=== PATIENT | male | born 1975 | race Caucasian/White ===

== ENCOUNTER 2016-12-09 19:15 | Inpatient (IN) | payer OTHER ==
[~2016-12-09] VITALS: Ht 185.4 cm; Wt 103.0 kg
[2016-12-09 19:55] LABS: HEMATOCRIT 36.1 % (38.0-50.0); MCHC 33.2 G/DL (30.0-36.0); MCV 96.3 FL (86-99); MEAN PLAT.VOLUME 11.1 uM^3 (9.0-12.4); PLATELET COUNT 60 K/uL (156-360); RBC DIS.WIDTH-CV 17.6 % (11.8-14.6); RED BLOOD COUNT 3.75 M/uL (4.00-5.50); WHITE BLOOD COUNT 4.6 K/uL (4.1-10.2)
[2016-12-09 20:04] LABS: CHLORIDE 101 mEq/L (99-109); POTASSIUM 4.3 mEq/L (3.7-5.4); SODIUM 135 mEq/L (136-147)
[2016-12-09 20:06] LABS: GLUCOSE 142 mg/dL (70-99)
[2016-12-09 20:07] LABS: ANION GAP 9 MEQ/L (2-14)
[2016-12-09 20:08] LABS: TOTAL BILIRUBIN 5.5 mg/dL (0.0-1.0)
[2016-12-09 20:10] LABS: ALKALINE PHOSPHATASE 162 IU/L (3-129); GFR ESTIMATE (CALCULATED) > 59 mL/min/
[2016-12-09 20:11] LABS: UREA NITROGEN (BUN) 7 mg/dL (9-23)
[2016-12-09 20:13] LABS: LIPASE 56 U/L (1.0-51.0)
[2016-12-09 20:44] LABS: ADD MIUA? YES; BILIRUBIN NEGATIVE; BLOOD NEGATIVE; GLUCOSE (STRIP) NEGATIVE; KETONES TRACE; LEUKOCYTES SMALL; NITRITE POSITIVE; PH, URINE 8.5 (5-8); PROTEIN (STRIP) 30; SPECIFIC GRAVITY 1.022 (1.000-1.030)
[2016-12-09 20:46] LABS: COLOR ORANGE ((YELLOW))
[2016-12-09 20:52] LABS: INTER. NORMALIZED RATIO 1.6; PROTHROMBIN TIME 16.7 (9.2-11.2); PTT 30.9 (25-32)
[2016-12-09 21:02] LABS: SERUM ETHYL ALCOHOL < 10 mg/dL
[2016-12-09 21:02] LABS: BACTERIA 2+ /HPF; CASTS NONE SEEN /LPF; CRYSTALS NONE SEEN; EPITHELIAL CELLS RARE /HPF; MUCUS 3+ /LPF; RED BLOOD CELLS 0-5 /HPF (0-5); UCUL ADDED? NO; WHITE BLOOD CELLS 0-5 /HPF (0-5)
[2016-12-10 00:13] VITALS: BP 145/76
[2016-12-10 07:19] LABS: MCH 32.8 PG (29.0-34.0); MCHC 33.5 G/DL (30.0-36.0); MCV 97.7 FL (86-99); MEAN PLAT.VOLUME 11.8 uM^3 (9.0-12.4); PLATELET COUNT 57 K/uL (156-360); RBC DIS.WIDTH-CV 17.7 % (11.8-14.6); RBC DIS.WIDTH-SD 63.2 % (39-53); RED BLOOD COUNT 3.48 M/uL (4.00-5.50); WHITE BLOOD COUNT 4.1 K/uL (4.1-10.2)
[2016-12-10 07:41] LABS: ALKALINE PHOSPHATASE 127 IU/L (3-129); ANION GAP 8 MEQ/L (2-14); CHLORIDE 100 MEQ/L (99-109); GFR ESTIMATE (CALCULATED) > 59 mL/min/; GLUCOSE 130 mg/dL (70-99); SAMPLE HEMOLYSIS CHECK 0; SAMPLE ICTERIC CHECK 2; SAMPLE LIPEMIA CHECK 0; SODIUM 133 MEQ/L (136-147); TOTAL BILIRUBIN 5.8 MG/DL (0.0-1.0); UREA NITROGEN (BUN) 6 mg/dL (9-23)
[2016-12-10 07:47] LABS: POTASSIUM 3.3 MEQ/L (3.7-5.4)
[2016-12-10 07:51] VITALS: BP 147/70
[2016-12-10 10:59] LABS: HPCA INDEX 0.36
[2016-12-10 11:29] VITALS: BP 135/80
[2016-12-10 11:30] LABS: ANTI-HEPATITIS B CORE (IGM) Nonreactive
[2016-12-10 11:31] LABS: ANTI-HEPATITIS A VIRUS (IGM) Nonreactive; HAV INDEX 0.21
[2016-12-10 15:51] VITALS: BP 136/76
[2016-12-10 17:47] LABS: HEMATOCRIT 36.2 % (38.0-50.0); MCH 32.3 PG (29.0-34.0); MCHC 33.1 G/DL (30.0-36.0); MCV 97.6 FL (86-99); MEAN PLAT.VOLUME 11.4 uM^3 (9.0-12.4); PLATELET COUNT 73 K/uL (156-360); RBC DIS.WIDTH-CV 17.4 % (11.8-14.6); RBC DIS.WIDTH-SD 62.4 % (39-53); RED BLOOD COUNT 3.71 M/uL (4.00-5.50); WHITE BLOOD COUNT 4.9 K/uL (4.1-10.2)
[2016-12-10 17:59] LABS: INTER. NORMALIZED RATIO 1.6; PROTHROMBIN TIME 16.7 (9.2-11.2); PTT 31.9 (25-32)
[2016-12-10 18:11] LABS: GLOBULINS 4.8 G/DL (2.3-3.5); IRON 85 MCG/DL (35-150)
[2016-12-10 18:25] LABS: AMYLASE 77 IU/L (1-118)
[2016-12-10 18:30] LABS: FERRITIN 182 NG/ML (22-322)
[2016-12-10 19:24] VITALS: BP 124/73
[2016-12-10 22:59] VITALS: BP 135/79
[2016-12-11 02:55] VITALS: BP 126/80
[2016-12-11 06:32] LABS: HEMATOCRIT 34.5 % (38.0-50.0); MCH 32.6 PG (29.0-34.0); MCHC 33.3 G/DL (30.0-36.0); MCV 97.7 FL (86-99); PLATELET COUNT 65 K/uL (156-360); RBC DIS.WIDTH-CV 17.5 % (11.8-14.6); RBC DIS.WIDTH-SD 62.6 % (39-53); RED BLOOD COUNT 3.53 M/uL (4.00-5.50); WHITE BLOOD COUNT 4.4 K/uL (4.1-10.2)
[2016-12-11 06:48] LABS: INTER. NORMALIZED RATIO 1.7; PROTHROMBIN TIME 17.4 (9.2-11.2)
[2016-12-11 06:58] LABS: ALKALINE PHOSPHATASE 129 IU/L (3-129); ANION GAP 8 MEQ/L (2-14); CHLORIDE 103 MEQ/L (99-109); GFR ESTIMATE (CALCULATED) > 59 mL/min/; GLUCOSE 89 mg/dL (70-99); POTASSIUM 3.6 MEQ/L (3.7-5.4); SAMPLE HEMOLYSIS CHECK 0; SAMPLE ICTERIC CHECK 1; SAMPLE LIPEMIA CHECK 0; SODIUM 137 MEQ/L (136-147); TOTAL BILIRUBIN 5.1 MG/DL (0.0-1.0); UREA NITROGEN (BUN) 7 mg/dL (9-23)
[2016-12-11 08:12] VITALS: BP 138/86
[2016-12-11 11:32] VITALS: BP 139/81
[2016-12-11] MEDS ORDERED: ZOLPIDEM TARTRAT5 MG PO (11:51)
[2016-12-11] MEDS ORDERED: PANTOPRAZOLE SO40 MG PO (11:51)
[2016-12-11] MEDS ORDERED: THERAGRAN1 TABLET PO (11:51)
[2016-12-11] MEDS ORDERED: FOLIC ACID1 MG PO (11:51)
[2016-12-11] MEDS ORDERED: Thiamine,Vitamin B1 PO (11:51)
[2016-12-12 11:09] LABS: AHBS INDEX 0; HEPATITIS B SURFACE ANTIBODY Nonreactive
[2016-12-12 11:10] LABS: ANTI-HEPATITIS A VIRUS (IGM) Nonreactive; HAV INDEX 0.15
[2016-12-12 14:15] LABS: ALBUMIN 3.38 G/DL (3.6-4.9); ALBUMIN PERCENT 42.2 %; ALPHA-1 GLOBULIN 0.32 G/DL (0.15-0.40); ALPHA-2 GLOBULIN 0.58 G/DL (0.45-0.85); ALPHA-2 PERCENT 7.3 %; BETA PERCENT 9.6 %; GAMMA PERCENT 36.9 %
[2016-12-14 05:19] LABS: HCV RNA (IU/mL) <15 IU/mL (<15)
[2016-12-14 11:38] LABS: HCV RNA (LOG IU/mL) <1.18 (<1.18)
== END 2016-12-11 12:47 | disposition home or self-care (01) | DRG 433 ==
LOC: EME 19:15 → EDOF 23:20 → 5EAST 12-10 00:08
PROVIDERS: Hospitalist; Internal Medicine; Specialist
DX: K70.10 Alcoholic hepatitis without ascites (principal); F10.239 Alcohol dependence with withdrawal, unspecified; D68.4 Acquired coagulation factor deficiency; K76.6 Portal hypertension; I85.10 Secondary esophageal varices without bleeding; R04.0 Epistaxis; K06.8 Other specified disorders of gingiva and edentulous alveolar ridge; F17.210 Nicotine dependence, cigarettes, uncomplicated; E66.9 Obesity, unspecified; I78.1 Nevus, non-neoplastic; L30.9 Dermatitis, unspecified; Y90.0 Blood alcohol level of less than 20 mg/100 ml; D69.59 Other secondary thrombocytopenia; G89.29 Other chronic pain; R16.1 Splenomegaly, not elsewhere classified; K70.30 Alcoholic cirrhosis of liver without ascites; I86.8 Varicose veins of other specified sites; I86.4 Gastric varices; K42.9 Umbilical hernia without obstruction or gangrene; D64.89 Other specified anemias; Z56.0 Unemployment, unspecified; Z68.29 Body mass index [BMI] 29.0-29.9, adult; Z87.820 Personal history of traumatic brain injury; Z82.49 Family history of ischemic heart disease and other diseases of the circulatory system
CPT/HCPCS: 74177; 80053; 80074; 81003; 82140; 82150; 82390; 82607; 82728; 82746; 83540; 83690; 84165; 84466; 85027; 85610; 85730; 86706; 86709; 87086; 87522 90; 99281; 99285; G0480; J7030

== ENCOUNTER 2017-01-09 21:30 | Inpatient (IN) | payer OTHER ==
[~2017-01-09] VITALS: Ht 185.4 cm; Wt 107.0 kg
[~2017-01-09 21:30] MED LIST: FOLIC ACID1 MG PO; PANTOPRAZOLE SO40 MG PO; THERAGRAN1 TABLET PO; Thiamine,Vitamin B1 PO; ZOLPIDEM TARTRAT5 MG PO
[2017-01-09 22:00] VITALS: BP 162/90
[2017-01-09 22:17] LABS: CHLORIDE 103 mEq/L (99-109); POTASSIUM 3.9 mEq/L (3.7-5.4); SODIUM 137 mEq/L (136-147)
[2017-01-09 22:19] LABS: HEMATOCRIT 34.6 % (38.0-50.0); MCH 32.6 PG (29.0-34.0); MCHC 33.8 G/DL (30.0-36.0); MCV 96.4 FL (86-99); MEAN PLAT.VOLUME 11.1 uM^3 (9.0-12.4); RBC DIS.WIDTH-CV 16.4 % (11.8-14.6); RBC DIS.WIDTH-SD 55.1 % (39-53); RED BLOOD COUNT 3.59 M/uL (4.00-5.50); WHITE BLOOD COUNT 5.9 K/uL (4.1-10.2)
[2017-01-09 22:20] LABS: GLUCOSE 114 mg/dL (70-99); PLATELET COUNT 77 K/uL (156-360)
[2017-01-09 22:21] LABS: ANION GAP 9 MEQ/L (2-14)
[2017-01-09 22:22] LABS: TOTAL BILIRUBIN 2.5 mg/dL (0.0-1.0)
[2017-01-09 22:23] LABS: ALKALINE PHOSPHATASE 261 IU/L (3-129); GFR ESTIMATE (CALCULATED) > 59 mL/min/
[2017-01-09 22:24] LABS: UREA NITROGEN (BUN) 5 mg/dL (9-23)
[2017-01-09 22:32] VITALS: BP 152/84
[2017-01-09 22:50] LABS: INTER. NORMALIZED RATIO 1.5; PROTHROMBIN TIME 15.7 (9.2-11.2); PTT 30.6 (25-32)
[2017-01-10] MEDS ORDERED: OMEPRAZOLE20 M2 PO (00:37)
[2017-01-10] MEDS ORDERED: B-1100 MG PO (00:37)
[2017-01-10] MEDS ORDERED: FOLIC ACID1 MG PO (00:37)
[2017-01-10] MEDS ORDERED: DESYREL100 MG PO (00:39)
[2017-01-10] MEDS ORDERED: MEN'S MULTI-VI1 EACH PO (00:39)
[2017-01-10] MEDS ORDERED: PRILOSEC20 MG PO (00:40)
[2017-01-10] MEDS ORDERED: INDERAL20 MG PO (00:40)
[2017-01-10 01:53] LABS: ADD MIUA? NO; BILIRUBIN NEGATIVE; BLOOD NEGATIVE; COLOR YELLOW ((YELLOW)); GLUCOSE (STRIP) NEGATIVE; KETONES NEGATIVE; LEUKOCYTES NEGATIVE; NITRITE NEGATIVE; PROTEIN (STRIP) NEGATIVE; SPECIFIC GRAVITY 1.023 (1.000-1.030); UCUL ADDED? NO; UROBILINOGEN 0.2 MG/DL (0.2-1.0)
[2017-01-10 08:00] VITALS: BP 157/83
[2017-01-10 08:50] LABS: HEMATOCRIT 34.2 % (38.0-50.0); MCHC 33.6 G/DL (30.0-36.0); MEAN PLAT.VOLUME 11.7 uM^3 (9.0-12.4); PLATELET COUNT 67 K/uL (156-360); RBC DIS.WIDTH-CV 16.5 % (11.8-14.6); RBC DIS.WIDTH-SD 58.7 % (39-53); RED BLOOD COUNT 3.49 M/uL (4.00-5.50); WHITE BLOOD COUNT 4.8 K/uL (4.1-10.2)
[2017-01-10 09:16] LABS: ALKALINE PHOSPHATASE 164 IU/L (3-129); ANION GAP 9 MEQ/L (2-14); CHLORIDE 102 MEQ/L (99-109); GFR ESTIMATE (CALCULATED) > 59 mL/min/; GLUCOSE 132 mg/dL (70-99); SAMPLE HEMOLYSIS CHECK 0; SAMPLE ICTERIC CHECK 1; SAMPLE LIPEMIA CHECK 0; SODIUM 136 MEQ/L (136-147); TOTAL BILIRUBIN 4.4 MG/DL (0.0-1.0); UREA NITROGEN (BUN) 7 mg/dL (9-23)
[2017-01-10 11:44] VITALS: BP 164/100
[2017-01-10 16:10] VITALS: BP 137/95
[2017-01-10 19:52] VITALS: BP 152/80
[2017-01-10 19:59] LABS: HEMATOCRIT 34.6 % (38.0-50.0)
[2017-01-10 23:35] VITALS: BP 138/78
[2017-01-11 03:36] VITALS: BP 159/79
[2017-01-11 07:26] VITALS: BP 143/72
[2017-01-11 08:48] LABS: HEMATOCRIT 35.4 % (38.0-50.0); MCH 31.8 PG (29.0-34.0); MCHC 32.5 G/DL (30.0-36.0); MCV 97.8 FL (86-99); MEAN PLAT.VOLUME 11.2 uM^3 (9.0-12.4); PLATELET COUNT 61 K/uL (156-360); RBC DIS.WIDTH-SD 57.3 % (39-53); RED BLOOD COUNT 3.62 M/uL (4.00-5.50)
[2017-01-11 09:17] LABS: ALKALINE PHOSPHATASE 114 IU/L (3-129); ANION GAP 8 MEQ/L (2-14); CHLORIDE 100 MEQ/L (99-109); DIRECT BILIRUBIN 2.9 mg/dL (0.0-0.3); GFR ESTIMATE (CALCULATED) > 59 mL/min/; GLUCOSE 111 mg/dL (70-99); POTASSIUM 3.8 MEQ/L (3.7-5.4); SAMPLE HEMOLYSIS CHECK 0; SAMPLE ICTERIC CHECK 2; SAMPLE LIPEMIA CHECK 0; SODIUM 135 MEQ/L (136-147); TOTAL BILIRUBIN 6.8 MG/DL (0.0-1.0); UREA NITROGEN (BUN) 7 mg/dL (9-23)
[2017-01-11 11:30] VITALS: BP 134/82
[2017-01-11 15:45] VITALS: BP 141/78
[2017-01-11 17:50] VITALS: BP 137/79
[2017-01-11 20:10] LABS: HEMATOCRIT 34.3 % (38.0-50.0); MCV 98.3 FL (86-99)
[2017-01-11 20:29] VITALS: BP 147/78
[2017-01-12 00:27] VITALS: BP 127/67
[2017-01-12 04:27] VITALS: BP 126/72
[2017-01-12 06:45] LABS: INTER. NORMALIZED RATIO 1.7; PROTHROMBIN TIME 18.1 (9.2-11.2); PTT 33.1 (25-32)
[2017-01-12 06:56] LABS: DELETE MACHINE DIFF? YES; HEMATOCRIT 34.9 % (38.0-50.0); MCH 33.3 PG (29.0-34.0); MCHC 34.1 G/DL (30.0-36.0); MCV 97.8 FL (86-99); RBC DIS.WIDTH-CV 15.9 % (11.8-14.6); RBC DIS.WIDTH-SD 56.6 % (39-53); RED BLOOD COUNT 3.57 M/uL (4.00-5.50); WHITE BLOOD COUNT 5.1 K/uL (4.1-10.2)
[2017-01-12 07:03] LABS: ALKALINE PHOSPHATASE 108 IU/L (3-129); ANION GAP 8 MEQ/L (2-14); CHLORIDE 100 MEQ/L (99-109); DIRECT BILIRUBIN 2.8 mg/dL (0.0-0.3); GFR ESTIMATE (CALCULATED) > 59 mL/min/; GLUCOSE 109 mg/dL (70-99); POTASSIUM 3.7 MEQ/L (3.7-5.4); SAMPLE HEMOLYSIS CHECK 0; SAMPLE ICTERIC CHECK 2; SAMPLE LIPEMIA CHECK 0; SODIUM 134 MEQ/L (136-147); TOTAL BILIRUBIN 6.1 MG/DL (0.0-1.0); UREA NITROGEN (BUN) 7 mg/dL (9-23)
[2017-01-12 07:21] LABS: HEMATOCRIT 34.9 % (38.0-50.0); MCV 97.8 FL (86-99)
[2017-01-12 07:37] VITALS: BP 134/73
[2017-01-12 07:40] LABS: MEAN PLAT.VOLUME 11.7 uM^3 (9.0-12.4); PLATELET COUNT 59 K/uL (156-360)
[2017-01-12 07:54] LABS: ABS NEUTROPHIL COUNT 3.54; ANISOCYTOSIS 1+; EOSINOPHIL ABS CT 0.51; HYPOCHROMASIA 1+; MACROCYTES OCC; MICROCYTOSIS OCC; PLAT.SUFFICIENCY DECREASED; TARGET CELLS RARE; TEAR DROP CELLS OCC; USER ID TLW
== END 2017-01-12 11:25 | disposition home or self-care (01) | DRG 378 ==
LOC: EME 21:30 → EDOF 01-10 00:47 → 4EAST 01-10 00:47 → EDOF 01-10 06:33 → 4EAST 01-10 07:13
PROVIDERS: Emergency Medicine; Hospitalist; Nurse Practitioner Adult Health; Specialist
PROC: 0DJ08ZZ Inspection of Upper Intestinal Tract, Via Natural or Artificial Opening Endoscopic (ICD-10-PCS; principal; 2017-01-11)
DX: K92.0 Hematemesis (principal); K76.6 Portal hypertension; D61.818 Other pancytopenia; F10.239 Alcohol dependence with withdrawal, unspecified; I85.10 Secondary esophageal varices without bleeding; K70.31 Alcoholic cirrhosis of liver with ascites; K31.89 Other diseases of stomach and duodenum; R16.1 Splenomegaly, not elsewhere classified; I86.4 Gastric varices; K72.10 Chronic hepatic failure without coma; E66.9 Obesity, unspecified; K80.20 Calculus of gallbladder without cholecystitis without obstruction; F17.210 Nicotine dependence, cigarettes, uncomplicated; Z87.820 Personal history of traumatic brain injury; Z56.0 Unemployment, unspecified; Z68.32 Body mass index [BMI] 32.0-32.9, adult; Z82.49 Family history of ischemic heart disease and other diseases of the circulatory system
CPT/HCPCS: 74177; 80048; 80053; 80076; 81003; 82140; 82248; 83605; 83690; 85014; 85018; 85025; 85027; 85610; 85730; 86850; 86900; 86901; 99281; 99285; C9113; J2354; J3411; J3430; J7030; J7050; P9047

== ENCOUNTER → 2017-03-10 | Outpatient (CLI) | payer OTHER ==
[~2017-03-10] VITALS: Ht 185.4 cm; Wt 106.6 kg
[~2017-03-10] MED LIST changes: +B-1100 MG PO; +DESYREL100 MG PO; +INDERAL20 MG PO; +MEN'S MULTI-VI1 EACH PO; +OMEPRAZOLE20 M2 PO; +PRILOSEC20 MG PO
== END | disposition home or self-care (01) ==
LOC: AMB 13:38
PROC: 06L34CZ Occlusion of Esophageal Vein with Extraluminal Device, Percutaneous Endoscopic Approach (ICD-10-PCS; principal; 2017-03-10)
DX: K70.30 Alcoholic cirrhosis of liver without ascites (principal); I85.10 Secondary esophageal varices without bleeding; K76.6 Portal hypertension; K31.89 Other diseases of stomach and duodenum; K25.9 Gastric ulcer, unspecified as acute or chronic, without hemorrhage or perforation; K92.0 Hematemesis; D64.9 Anemia, unspecified; K21.9 Gastro-esophageal reflux disease without esophagitis
CPT/HCPCS: J2250; J3010

== ENCOUNTER 2017-03-27 11:00 | Inpatient (IN) | payer OTHER ==
[~2017-03-27] VITALS: Ht 185.4 cm; Wt 101.5 kg
[2017-03-27 12:04] LABS: HEMATOCRIT 36.5 % (38.0-50.0); MCH 33.3 PG (29.0-34.0); MCV 98.1 FL (86-99); MEAN PLAT.VOLUME 11.2 uM^3 (9.0-12.4); PLATELET COUNT 125 K/uL (156-360); RBC DIS.WIDTH-CV 15.7 % (11.8-14.6); RBC DIS.WIDTH-SD 56.5 % (39-53); RED BLOOD COUNT 3.72 M/uL (4.00-5.50)
[2017-03-27 12:22] LABS: CHLORIDE 96 mEq/L (99-109); POTASSIUM 5.9 mEq/L (3.7-5.4); SODIUM 129 mEq/L (136-147)
[2017-03-27 12:24] LABS: GLUCOSE 111 mg/dL (70-99)
[2017-03-27 12:26] LABS: ANION GAP 10 MEQ/L (2-14)
[2017-03-27 12:28] LABS: GFR ESTIMATE (CALCULATED) > 59 mL/min/
[2017-03-27 12:29] LABS: UREA NITROGEN (BUN) 15 mg/dL (9-23)
[2017-03-27 12:54] LABS: TOTAL BILIRUBIN 4.9 mg/dL (0.0-1.0)
[2017-03-27 12:56] LABS: ALKALINE PHOSPHATASE 251 IU/L (3-129)
[2017-03-27 12:58] LABS: DIRECT BILIRUBIN 2.8 mg/dL (0.0-0.3)
[2017-03-27 12:59] LABS: LIPASE 92 U/L (1.0-51.0)
[2017-03-27] MEDS ORDERED: B COMPLETE1 EACH PO (13:10)
[2017-03-27] MEDS ORDERED: ASCORBIC ACID100 MG PO (13:10)
[2017-03-27] MEDS ORDERED: VITAMIN A10000 UNIT PO (13:10)
[2017-03-27 14:07] LABS: INTER. NORMALIZED RATIO 1.6; PROTHROMBIN TIME 16.1 (9.2-11.2); PTT 29.7 (25-32)
[2017-03-27 18:09] VITALS: BP 118/58
[2017-03-27 19:19] VITALS: BP 128/61
[2017-03-27 19:59] LABS: HEMATOCRIT 33.8 % (38.0-50.0)
[2017-03-27 23:42] VITALS: BP 131/66
[2017-03-28 04:43] VITALS: BP 118/64
[2017-03-28 07:39] VITALS: BP 128/62
[2017-03-28 07:58] LABS: ALKALINE PHOSPHATASE 140 IU/L (3-129); ANION GAP 8 MEQ/L (2-14); CHLORIDE 100 MEQ/L (99-109); GFR ESTIMATE (CALCULATED) > 59 mL/min/; GLUCOSE 126 mg/dL (70-99); SAMPLE HEMOLYSIS CHECK 0; SAMPLE ICTERIC CHECK 2; SAMPLE LIPEMIA CHECK 0; SODIUM 134 MEQ/L (136-147); TOTAL BILIRUBIN 6.9 MG/DL (0.0-1.0); UREA NITROGEN (BUN) 22 mg/dL (9-23)
[2017-03-28 08:01] LABS: POTASSIUM 4.2 MEQ/L (3.7-5.4)
[2017-03-28 08:04] LABS: HEMATOCRIT 30.9 % (38.0-50.0); MCH 33.7 PG (29.0-34.0); RBC DIS.WIDTH-CV 15.8 % (11.8-14.6); RBC DIS.WIDTH-SD 56.5 % (39-53); RED BLOOD COUNT 3.12 M/uL (4.00-5.50); WHITE BLOOD COUNT 7.6 K/uL (4.1-10.2)
[2017-03-28 09:21] LABS: MEAN PLAT.VOLUME 11.2 uM^3 (9.0-12.4); PLAT.SUFFICIENCY DECREASED
[2017-03-28 09:23] LABS: PLATELET COUNT 75 K/uL (156-360)
[2017-03-28 12:14] VITALS: BP 122/66
[2017-03-28 17:19] VITALS: BP 135/70
[2017-03-28 19:02] VITALS: BP 121/64
[2017-03-28 20:09] LABS: HEMATOCRIT 30.5 % (38.0-50.0); MCV 100.3 FL (86-99)
[2017-03-28 23:50] VITALS: BP 132/71
[2017-03-29 05:06] VITALS: BP 132/75
[2017-03-29 07:21] VITALS: BP 126/69
[2017-03-29 08:33] LABS: INTER. NORMALIZED RATIO 1.7; PROTHROMBIN TIME 17.3 (9.2-11.2); PTT 30.6 (25-32)
[2017-03-29 08:35] LABS: ALKALINE PHOSPHATASE 115 IU/L (3-129); ANION GAP 6 MEQ/L (2-14); CHLORIDE 101 MEQ/L (99-109); GFR ESTIMATE (CALCULATED) > 59 mL/min/; GLUCOSE 108 mg/dL (70-99); SAMPLE HEMOLYSIS CHECK 0; SAMPLE ICTERIC CHECK 2; SAMPLE LIPEMIA CHECK 0; SODIUM 135 MEQ/L (136-147); TOTAL BILIRUBIN 7.2 MG/DL (0.0-1.0); UREA NITROGEN (BUN) 14 mg/dL (9-23)
[2017-03-29 08:39] LABS: EOSINOPHIL COUNT 0.1 K/uL (0-0.3); HEMATOCRIT 29.1 % (38.0-50.0); IMMATURE GRANULOCYTE (%) 0.2 % (0.0-0.7); INSTRUMENT ABS NEUTROPHIL CT 3.1 K/uL; LYMPHOCYTE COUNT 0.7 K/uL (1.0-2.8); MCH 34.6 PG (29.0-34.0); MCHC 34.4 G/DL (30.0-36.0); MCV 100.7 FL (86-99); MEAN PLAT.VOLUME 11.8 uM^3 (9.0-12.4); MONOCYTE (%) 12.8 % (3-12); MONOCYTE COUNT 0.6 K/uL (0-0.8); NEUTROPHIL COUNT 3.1 K/uL (1.8-6.4); PLATELET COUNT 63 K/uL (156-360); RBC DIS.WIDTH-CV 15.9 % (11.8-14.6); RED BLOOD COUNT 2.89 M/uL (4.00-5.50)
[2017-03-29 08:43] LABS: WHITE BLOOD COUNT 4.6 K/uL (4.1-10.2)
[2017-03-29 10:57] VITALS: BP 142/69
[2017-03-29] MEDS ORDERED: VITAMIN B-1250 MG PO (12:10)
[2017-03-29] MEDS ORDERED: MEPHYTON5 MG PO (12:11)
[2017-03-29] MEDS ORDERED: SPIRONOLACTONE100 MG PO (12:11)
[2017-03-29] MEDS ORDERED: TRAZODONE HCL100 MG PO (12:12)
[2017-03-29] MEDS ORDERED: FEOSOL BIFERA 228 MG PO (12:14)
[2017-03-29] MEDS ORDERED: VITAMIN D35000 UNIT PO (12:15)
[2017-03-29 15:36] VITALS: BP 161/74
[2017-03-29 20:03] LABS: HEMATOCRIT 30.4 % (38.0-50.0)
[2017-03-29 20:14] VITALS: BP 158/80
[2017-03-29 23:31] VITALS: BP 137/75
[2017-03-30 05:07] VITALS: BP 132/76
[2017-03-30] MEDS ORDERED: TRAZODONE HCL100 MG PO (07:31)
[2017-03-30] MEDS ORDERED: PRAZOSIN HCL2 MG PO (07:31)
[2017-03-30 07:45] LABS: HEMATOCRIT 28.6 % (38.0-50.0); MCH 34.9 PG (29.0-34.0); MCHC 34.6 G/DL (30.0-36.0); MCV 100.7 FL (86-99); MEAN PLAT.VOLUME 11.4 uM^3 (9.0-12.4); PLATELET COUNT 64 K/uL (156-360); RBC DIS.WIDTH-CV 15.8 % (11.8-14.6); RBC DIS.WIDTH-SD 58.5 % (39-53); RED BLOOD COUNT 2.84 M/uL (4.00-5.50); WHITE BLOOD COUNT 4.5 K/uL (4.1-10.2)
[2017-03-30 08:00] VITALS: BP 131/75
[2017-03-30 08:20] LABS: ALKALINE PHOSPHATASE 117 IU/L (3-129); ANION GAP 8 MEQ/L (2-14); CHLORIDE 99 MEQ/L (99-109); GFR ESTIMATE (CALCULATED) > 59 mL/min/; GLUCOSE 108 mg/dL (70-99); POTASSIUM 3.7 MEQ/L (3.7-5.4); SAMPLE HEMOLYSIS CHECK 0; SAMPLE ICTERIC CHECK 2; SAMPLE LIPEMIA CHECK 0; SODIUM 134 MEQ/L (136-147); TOTAL BILIRUBIN 7.7 MG/DL (0.0-1.0); UREA NITROGEN (BUN) 10 mg/dL (9-23)
== END 2017-03-30 08:42 | disposition home or self-care (01) | DRG 368 ==
LOC: EME 11:00 → EDOF 15:46 → 4EAST 15:46
PROVIDERS: Emergency Medicine; Nurse Practitioner Adult Health; Pediatrics; Physician Assistant; Specialist
PROC: 0DJ08ZZ Inspection of Upper Intestinal Tract, Via Natural or Artificial Opening Endoscopic (ICD-10-PCS; principal; 2017-03-28)
DX: I85.11 Secondary esophageal varices with bleeding (principal); K22.11 Ulcer of esophagus with bleeding; K76.6 Portal hypertension; F10.20 Alcohol dependence, uncomplicated; K70.30 Alcoholic cirrhosis of liver without ascites; G47.00 Insomnia, unspecified; K21.9 Gastro-esophageal reflux disease without esophagitis; Z87.820 Personal history of traumatic brain injury; K31.89 Other diseases of stomach and duodenum; F17.210 Nicotine dependence, cigarettes, uncomplicated; E87.1 Hypo-osmolality and hyponatremia
CPT/HCPCS: 71020; 80048; 80053; 80076; 83690; 85014; 85018; 85025; 85027; 85610; 85730; 86900; 86901; 93005; 99281; 99285; C9113; J2250; J2354; J3411; J7030; J7050

== ENCOUNTER → 2017-05-12 | Outpatient (CLI) | payer OTHER ==
[~2017-05-12] VITALS: Ht 185.4 cm; Wt 112.4 kg
[~2017-05-12] MED LIST changes: +ASCORBIC ACID100 MG PO; +B COMPLETE1 EACH PO; +FEOSOL BIFERA 228 MG PO; +MEPHYTON5 MG PO; +PRAZOSIN HCL2 MG PO; +SPIRONOLACTONE100 MG PO; +TRAZODONE HCL100 MG PO; +VITAMIN A10000 UNIT PO; +VITAMIN B-1250 MG PO; +VITAMIN D35000 UNIT PO
== END | disposition home or self-care (01) ==
LOC: AMB 13:54
PROC: 0DJ08ZZ Inspection of Upper Intestinal Tract, Via Natural or Artificial Opening Endoscopic (ICD-10-PCS; principal; 2017-05-12)
DX: K74.60 Unspecified cirrhosis of liver (principal); I85.10 Secondary esophageal varices without bleeding; F10.10 Alcohol abuse, uncomplicated; Z87.820 Personal history of traumatic brain injury; F17.210 Nicotine dependence, cigarettes, uncomplicated
CPT/HCPCS: J3010